=== PATIENT | female | born 1970 | race Caucasian/White ===

== ENCOUNTER → 2024-01-31 | Outpatient (CLI) | payer OTHER ==
[~2024-01-31] MED LIST: GADOTERATE MEGLUMINE 10 MMOL/20 ML VIAL IV ONE
== END | disposition home or self-care (01) ==
LOC: RAH 11:10
PROVIDERS: ATTEND Physician Assistant Medical
DX: N64.52 Nipple discharge (principal); N64.4 Mastodynia; N64.3 Galactorrhea not associated with childbirth
CPT/HCPCS: C8908; A9575; 77049